=== PATIENT | male | born 1970 | race African-American/Black ===

== ENCOUNTER 2020-06-01 23:44 | Emergency (ER) | payer BC ==
[2020-06-01] MEDS ORDERED: Bupivacaine 0.5% 10 ML VIAL ONE (23:54)
== END 2020-06-02 00:25 | disposition home or self-care (01) ==
LOC: ERS 23:44
DX: S61.210A Laceration without foreign body of right index finger without damage to nail, initial encounter (principal); W26.8XXA Contact with other sharp object(s), not elsewhere classified, initial encounter
CPT/HCPCS: 12001; J3490